=== PATIENT | male | born 1985 | race Caucasian/White ===

== ENCOUNTER 2018-12-15 05:19 | Emergency (ER) | payer OTHER ==
[2018-12-15] MEDS: ACETAMINOPHEN 325 MG TAB PO (06:32)
[2018-12-15] MEDS: LIDOCAINE 1% (MDV) 10 ML INJ INJ (06:37)
[2018-12-15] MEDS: LIDOCAINE 1% (MDV) 20 ML INJ SC (06:38)
== END 2018-12-15 07:37 | disposition home or self-care (01) ==
LOC: FTE 05:19
DX: S51.811A Laceration without foreign body of right forearm, initial encounter (principal); Y09 Assault by unspecified means
CPT/HCPCS: 12002; 99282-25